=== PATIENT | male | born 2000 | race Caucasian/White ===

== ENCOUNTER 2021-03-14 00:46 | Emergency (ER) | payer OTHER, SELFPAY ==
[2021-03-14] MEDS ORDERED: Haloperidol Lactate 5 MG/ML VIAL ONE ×2 (00:58→01:04)
[2021-03-14] MEDS ORDERED: diphenhydrAMINE 50 MG/ML VIAL ONE (01:31)
[2021-03-14] MEDS ORDERED: Lorazepam 2 MG/ML VIAL ONE (01:31)
[2021-03-14] MEDS ORDERED: Boostrix 0.5 ML (Tdap) VIAL ONE (01:56)
[2021-03-14] MEDS ORDERED: Lidocaine 1% w/Epinephrine 1:100K 20 ML VIAL ONE (01:56)
[2021-03-14] MEDS ORDERED: Lidocaine 4% Cream 5 GM TUBE w/ Tegaderm ONE (04:41)
== END 2021-03-14 06:34 | disposition home or self-care (01) ==
LOC: ERS 00:46
DX: S01.81XA Laceration without foreign body of other part of head, initial encounter (principal); F10.129 Alcohol abuse with intoxication, unspecified; W18.30XA Fall on same level, unspecified, initial encounter; Y92.480 Sidewalk as the place of occurrence of the external cause
CPT/HCPCS: 12013; 70450; 70486; 72125; 90471; 90715; 96372; J1200; J1630; J2060

== ENCOUNTER 2021-03-19 12:04 | Emergency (ER) | payer SELFPAY ==
[2021-03-19] MEDS ORDERED: Bacitracin 1 PK ONE (12:28)
== END 2021-03-19 13:11 | disposition home or self-care (01) ==
LOC: ERS 12:04
DX: S01.111D Laceration without foreign body of right eyelid and periocular area, subsequent encounter (principal); X58.XXXD Exposure to other specified factors, subsequent encounter